=== PATIENT | male | born 1970 | race Caucasian/White ===

== ENCOUNTER 2021-04-07 14:20 | Emergency (ER) | payer OTHER ==
--- OUTSIDE RECORDS SUMMARY | 2021-04-07 14:23 | XMS REPORT | Continuity of Care Document ---
:1970 Author Organization [facility] t Address Formerly [facility] [place] [address] Care Team Providers Name Role Phone Unavailable Unavailable Unavailable Problems This patient has no known problems. Allergies, Adverse Reactions, Alerts This patient has no known allergies or adverse reactions. Medications This patient has no known medications. Procedures This patient has no known procedures. Results This patient has no known results.
[2021-04-07 15:25] LABS: Urine Blood Trace-intact (Negative); Urine Glucose 2+ (Negative); Urine Protein Negative (Negative); Urine Specific Gravity 1.015 (1.005-1.030); Urine pH 6.5 (5.0-7.0)
[2021-04-07] MEDS ORDERED: MORPHINE 4 MG/ML SYR ONE (16:04)
[2021-04-07] MEDS ORDERED: ONDANSETRON 4 MG/2 ML VIAL ONE (16:04)
[2021-04-07 16:11] LABS: ALT/SGPT 107 U/L (12-78); AST/SGOT 49 U/L (15-37); Albumin 3.5 g/dL (3.4-5.0); Alkaline Phosphatase 100 U/L (45-117); BUN Blood Urea Nitrogen 8 mg/dL (7-18); Bicarbonate 29 mmol/L (21-32); Bilirubin Direct < 0.1 mg/dL (0-0.2); Bilirubin Total 0.3 mg/dL (0.2-1.0); Glucose Level 185 mg/dL (74-106); Lipase 232 U/L (73-393); Potassium 3.8 mmol/L (3.5-5.1); Protein, Total 8.1 g/dL (6.4-8.2); Sodium Level 138 mmol/L (136-145)
[2021-04-07 17:15] LABS: Absolute Lymphocytes (CBC) 1.6 K/uL (0.7-4.9); Basophils % 0.7 % (0-1.3); Hematocrit 37.6 % (39.6-49.0); MPV 7.5 fL (7.6-11.3)
[2021-04-07] MEDS ORDERED: NA CHLORIDE 0.9% 1,000 ML ONE (17:21)
--- NOTE | 2021-04-07 17:42 | RAD REPORT ---
EXAM DESCRIPTION: CTAbdomen Pelvis W Contrast - 04/07/2021 5:17 pm CLINICAL HISTORY: Abdominal pain. ABD PAIN COMPARISON: Extremity Nonvascular Complete dated 12/08/2016No comparisons TECHNIQUE: Biphasic CT imaging of the abdomen and pelvis was performed with 100 ml non-ionic IV cont rast. All CT scans are performed using dose optimization technique as appropriate and may include automated exposure control or mA/KV adjustment according to patient size. FINDINGS: The lung bases are clear.The gallbladder appears absent. The liver, spleen, pancreas, adrenal glands and kidneys are within normal limits. No bowel obstruction, free air, free fluid or abscess. Moderate diffuse colonic wall thickening is se en. Findings appear most significant involving the right colon. The appendix is not identified as a d iscrete structure, however, no secondary findings of appendicitis are identified. No evidence of si gnificant lymphadenopathy. No suspicious bony findings. IMPRESSION: Moderately severe colitis pattern is present. No pneumatosis, free air or abscess seen.
--- NOTE | 2021-04-07 17:55 | ER ---
Nurse's Notes [facility] Name: Lopez Estrada Age: 51 yrs Sex: Male : 1970 Arrival Date: 04/07/2021 Time: 14:29 Bed 6 Private MD: Diagnosis: Abdominal and pelvic pain;Colitis Presentation: 04/07 14:34 Chief complaint: Patient states: my stomach started hurting a couple of days ago, upper tw2 right side of my stomach. i have had diarrhea. i am having nausea too. no vomiting. Coronavirus screen: diarrhea, nausea, Client presents with at least one sign or symptom that may indicate coronavirus-19. Standard/surgical mask placed on the client. Provider contacted for isolation considerations. Ebola Screen: Patient denies travel to an Ebola-affected area in the 21 days before illness onset. Initial Sepsis Screen: Does the patient meet any 2 criteria? No. Patient's initial sepsis screen is negative. Does the patient have a suspected source of infection? No. Patient's initial sepsis screen is negative. Risk Assessment: Do you want to hurt yourself or someone else? Patient reports no desire to harm self or others. Onset of symptoms was April 07, 2021. 14:34 Method Of Arrival: Ambulatory tw2 14:34 Acuity: LUCIEN 3 tw2 Triage Assessment: 14:38 General: Appears in no apparent distress. slender, Behavior is calm, cooperative, tw2 appropriate for age. Pain: Complains of pain in right upper quadrant. GI: Reports lower abdominal pain, diarrhea, nausea. Historical: - Allergies: 14:37 No Known Allergies; tw2 - PMHx: 14:37 Diabetes - NIDDM; tw2 - PSHx: 14:37 Cholecystectomy; tw2 - Immunization history:: Adult Immunizations. - Social history:: Smoking status: Patient reports the use of cigarette tobacco products, smokes one pack cigarettes per day. Patient uses street drugs, Methamphetamine (Meth) 3 or 4 days ago. Screenin:25 Abuse screen: Denies threats or abuse. Nutritional screening: No deficits noted. tw2 Tuberculosis screening: No symptoms or risk factors identified. Fall Risk None identified. Assessment: 14:45 General: General: SEE TRIAGE NOTE. bp 16:00 Reassessment: No changes from previously documented assessment. Patient and/or family bp updated on plan of care and expected duration. Pain level reassessed. Patient states symptoms have improved. 17:10 Reassessment: No changes from previously documented assessment. Patient and/or family bp updated on plan of care and expected duration. Pain level reassessed. CT PENDING. LABS REDRAWN. 17:13 Reassessment: PT TO CT. bp 18:07 Reassessment: PT REFUSING PO ABX. STATES HE WILL NOT BE FILLING SCRIPT AT HOME AND THUS bp DOES NOT WANT TO START. PT GIVEN [employer] DISCOUNT CARD TO ENCOURAGE MEDICATION COMPLIANCE. PT D/C HOME AMBULATORY, DX WITH COLITIS. Vital Signs: 14:34 BP 124 / 84; Pulse 72; Resp 18; Temp 97.9; Pulse Ox 99% on R/A; Weight 81.65 kg (R); tw2 Height 5 ft. 10 in. (177.80 cm); Pain 8/10; 16:00 BP 129 / 87; Pulse 62; Resp 17; Pulse Ox 99% ; bp 17:00 BP 117 / 62; Pulse 65; Resp 17; Pulse Ox 97% ; bp 18:00 BP 135 / 81; Pulse 64; Resp 17; Temp 98; Pulse Ox 96% ; bp 14:34 Body Mass Index 25.83 (81.65 kg, 177.80 cm) tw2 ED Course: 14:29 Patient arrived in ED. wm 14:36 Triage completed. tw2 14:38 Arm band placed on. tw2 15:00 Inserted saline lock: 20 gauge in right antecubital area, using aseptic technique. bp Blood collected. 15:23 Rell Ortega, KALEE is Primary Nurse. bp 15:25 Trip Dumont MD is Attending Physician. kdr 15:25 Bed in low position. Call light in reach. Pulse ox on. NIBP on. tw2 17:09 Basic Metabolic Panel Sent. bp 17:17 CT Abd/Pelvis - IV Contrast Only In Process Unspecified. EDMS 18:00 No provider procedures requiring assistance completed. bp 18:05 IV discontinued, intact, bleeding controlled, No redness/swelling at site. Pressure ca1 dressing applied. Administered Medications: 16:00 Drug: morphine 4 mg Route: IVP; Site: right antecubital; bp 17:09 Follow up: Response: Pain is decreased bp 16:00 Drug: Zofran (Ondansetron) 4 mg Route: IVP; Site: right antecubital; bp 17:09 Follow up: Response: No adverse reaction bp 17:09 Drug: NS 0.9% 1000 ml Route: IV; Rate: 1 bolus; Site: right forearm; bp 18:07 Follow up: IV Status: Completed infusion; IV Intake: 1000ml bp 18:07 Not Given (Patient Refused): Flagyl (metroNIDAZOLE) 500 mg PO once bp 18:07 Not Given (Patient Refused): Cipro (ciprofloxacin) 500 mg PO once bp Intake: 18:07 IV: 1000ml; Total: 1000ml. bp Outcome: 17:55 Discharge ordered by . kdr 18:00 Discharged to home ambulatory. bp 18:00 Condition: stable 18:00 Discharge instructions given to patient, Instructed on discharge instructions, follow up and referral plans. medication usage, Demonstrated understanding of instructions, follow-up care, medications, Prescriptions given X 6 18:10 Patient left the ED. bp Signatures: Dispatcher [employer] EDMS Trip Dumont MD MD kdr Flower Martinez RN RN tw2 Rell Ortega RN RN bp Dominga Champagne RN RN ca1 Lizeth Cade Corrections: (The following items were deleted from the chart) 15:29 15:27 General: bp bp
--- NOTE | 2021-04-07 17:55 | EDPHYS ---
Physician Documentation [facility] Name: Lopez Estrada Age: 51 yrs Sex: Male : 1970 Arrival Date: 04/07/2021 Time: 14:29 Bed 6 Private MD: ED Physician Trip Dumont HPI: 04/07 18:02 This 51 yrs old Male presents to ER via Ambulatory with complaints of kdr Abdominal Pain. 18:02 The patient presents with abdominal pain in the epigastric area, in the upper abdomen. kdr Onset: The symptoms/episode began/occurred gradually, 2 week(s) ago. The symptoms do not radiate. Associated signs and symptoms: none. The symptoms are described as achy, burning, crampy, dull, vague. Modifying factors: The symptoms are alleviated by nothing, the symptoms are aggravated by drinking, food, movement, touching the area. Severity of pain: At its worst the pain was mild moderate just prior to arrival, in the emergency department the pain is unchanged. The patient has not experienced similar symptoms in the past. The patient has not recently seen a physician. Historical: - Allergies: 14:37 No Known Allergies; tw2 - PMHx: 14:37 Diabetes - NIDDM; tw2 - PSHx: 14:37 Cholecystectomy; tw2 - Immunization history:: Adult Immunizations. - Social history:: Smoking status: Patient reports the use of cigarette tobacco products, smokes one pack cigarettes per day. Patient uses street drugs, Methamphetamine (Meth) 3 or 4 days ago. ROS: 18:02 Constitutional: Negative for fever, chills, and weight loss, Eyes: Negative for injury, kdr pain, redness, and discharge, ENT: Negative for injury, pain, and discharge, Neck: Negative for injury, pain, and swelling, Cardiovascular: Negative for chest pain, palpitations, and edema, Respiratory: Negative for shortness of breath, cough, wheezing, and pleuritic chest pain, Back: Negative for injury and pain, : Negative for injury, bleeding, discharge, and swelling, MS/Extremity: Negative for injury and deformity, Skin: Negative for injury, rash, and discoloration, Neuro: Negative for headache, weakness, numbness, tingling, and seizure activity. Psych: Negative for depression, anxiety, suicide ideation, homicidal ideation, and hallucinations, Allergy/Immunology: Negative for hives, rash, and allergies, Endocrine: Negative for neck swelling, polydipsia, polyuria, polyphagia, and marked weight changes, Hematologic/Lymphatic: Negative for swollen nodes, abnormal bleeding, and unusual bruising. 18:02 Abdomen/GI: Positive for abdominal pain, nausea, Negative for diarrhea, constipation, abdominal cramps, abdominal distension, anorexia, dysphagia, hematemesis, black/tarry stool, rectal pain, rectal bleeding. Exam: 18:02 Constitutional: This is a well developed, well nourished patient who is awake, alert, kdr and in no acute distress. Head/Face: Normocephalic, atraumatic. Eyes: Pupils equal round and reactive to light, extra-ocular motions intact. Lids and lashes normal. Conjunctiva and sclera are non-icteric and not injected. Cornea within normal limits. Periorbital areas with no swelling, redness, or edema. Neck: Trachea midline, no thyromegaly or masses palpated, and no cervical lymphadenopathy. Supple, full range of motion without nuchal rigidity, or vertebral point tenderness. No Meningismus. Chest/axilla: Normal chest wall appearance and motion. Nontender with no deformity. No lesions are appreciated. Cardiovascular: Regular rate and rhythm with a normal S1 and S2. No gallops, murmurs, or rubs. Normal PMI, no JVD. No pulse deficits. Respiratory: Lungs have equal breath sounds bilaterally, clear to auscultation and percussion. No rales, rhonchi or wheezes noted. No increased work of breathing, no retractions or nasal flaring. Back: No spinal tenderness. No costovertebral tenderness. Full range of motion. Skin: Warm, dry with normal turgor. Normal color with no rashes, no lesions, and no evidence of cellulitis. MS/ Extremity: Pulses equal, no cyanosis. Neurovascular intact. Full, normal range of motion. Neuro: Awake and alert, GCS 15, oriented to person, place, time, and situation. Cranial nerves II-XII grossly intact. Motor strength 5/5 in all extremities. Sensory grossly intact. Cerebellar exam normal. Normal gait. Psych: Awake, alert, with orientation to person, place and time. Behavior, mood, and affect are within normal limits. 18:02 Abdomen/GI: Inspection: abdomen appears normal, Bowel sounds: normal, Palpation: soft, mild abdominal tenderness, in the epigastric area and right upper quadrant. Vital Signs: 14:34 BP 124 / 84; Pulse 72; Resp 18; Temp 97.9; Pulse Ox 99% on R/A; Weight 81.65 kg (R); tw2 Height 5 ft. 10 in. (177.80 cm); Pain 8/10; 16:00 BP 129 / 87; Pulse 62; Resp 17; Pulse Ox 99% ; bp 17:00 BP 117 / 62; Pulse 65; Resp 17; Pulse Ox 97% ; bp 18:00 BP 135 / 81; Pulse 64; Resp 17; Temp 98; Pulse Ox 96% ; bp 14:34 Body Mass Index 25.83 (81.65 kg, 177.80 cm) tw2 MDM: 17:55 Patient medically screened. [facility] 18:02 Data reviewed: vital signs, nurses notes, lab test result(s), radiologic studies. kdr Counseling: I had a detailed discussion with the patient and/or guardian regarding: the historical points, exam findings, and any diagnostic results supporting the discharge/admit diagnosis, lab results, radiology results, the need for outpatient follow up. Special discussion: Based on the patient's Hx, exam, and Dx evaluation, there is no indication for emergent surgery or inpatient Tx. It is understood by the patient/guardian that if the Sx's persist or worsen they need to return immediately for re-evaluation. ED course: The patient refused pain medication and abx. 18:02 Differential diagnosis: appendicitis, bowel obstruction, cholecystitis, Cholelithiasis, kdr diverticulitis. 04/07 15:25 Order name: Urine Dipstick-Ancillary; Complete Time: 15:27 [facility] 04/07 15:28 Order name: Basic Metabolic Panel [facility] 04/07 15:28 Order name: CBC with Diff; Complete Time: 17:25 [facility] 04/07 15:28 Order name: Hepatic Function; Complete Time: 16:26 [facility] 04/07 15:28 Order name: Lipase; Complete Time: 16:26 [facility] 04/07 15:28 Order name: Basic Metabolic Panel; Complete Time: 16:26 [facility] 04/07 15:28 Order name: IV Saline Lock; Complete Time: 16:02 [facility] 04/07 15:28 Order name: Labs collected and sent; Complete Time: 16:02 kdr 04/07 16:50 Order name: CT Abd/Pelvis - IV Contrast Only; Complete Time: 17:53 kdr 04/07 15:55 Order name: Labs - recollect needed: recollect lav top; Complete Time: 17:08 bd Administered Medications: 16:00 Drug: morphine 4 mg Route: IVP; Site: right antecubital; bp 17:09 Follow up: Response: Pain is decreased bp 16:00 Drug: Zofran (Ondansetron) 4 mg Route: IVP; Site: right antecubital; bp 17:09 Follow up: Response: No adverse reaction bp 17:09 Drug: NS 0.9% 1000 ml Route: IV; Rate: 1 bolus; Site: right forearm; bp 18:07 Follow up: IV Status: Completed infusion; IV Intake: 1000ml bp 18:07 Not Given (Patient Refused): Flagyl (metroNIDAZOLE) 500 mg PO once bp 18:07 Not Given (Patient Refused): Cipro (ciprofloxacin) 500 mg PO once bp Disposition: 04/07/21 17:55 Discharged to Home. Impression: Abdominal and pelvic pain, Colitis. - Condition is Stable. - Discharge Instructions: Abdominal Pain, Adult, [id number]. - Prescriptions for Bentyl 20 mg Oral Tablet - take 1 tablet by ORAL route every 6 hours As needed; 20 tablet. Cipro 500 mg Oral Tablet - take 1 tablet by ORAL route every 12 hours for 10 days; 20 tablet. Flagyl 500 mg Oral Tablet - take 1 tablet by ORAL route every 6 hours for 10 days; 40 tablet. Pepcid 20 mg Oral Tablet - take 1 tablet by ORAL route every 12 hours for 5 days; 10 tablet. Zofran 4 mg Oral Tablet - take 1 tablet by ORAL route every 12 hours As needed; 6 tablet. Tramadol 50 mg Oral Tablet - take 1 tablet by ORAL route every 8 hours as needed; 12 tablet. - Medication Reconciliation Form, Thank You Letter, Antibiotic Education, Prescription Opioid Use form. - Follow up: Private Physician; When: 2 - 3 days; Reason: If symptoms return, Further diagnostic work-up, Recheck today's complaints, Continuance of care, Re-evaluation by your physician. - Problem is new. - Symptoms have improved. Signatures: Dispatcher [employer] EDAshley Farah Kevin, MD MD kdr Flower Martinez RN RN tw2 Rell Ortega, RN RN bp Corrections: (The following items were deleted from the chart) 18:10 17:55 04/07/2021 17:55 Discharged to Home. Impression: Abdominal and pelvic pain; bp Colitis. Condition is Stable. Forms are Medication Reconciliation Form, Thank You Letter, Antibiotic Education, Prescription Opioid Use. Follow up: Private Physician; When: 2 - 3 days; Reason: If symptoms return, Further diagnostic work-up, Recheck today's complaints, Continuance of care, Re-evaluation by your physician. Problem is new. Symptoms have improved. kdr
[2021-04-07 19:18] VITALS: BP 135/81; TEMP 98; O2SAT 96
== END 2021-04-07 18:10 | disposition home or self-care (01) ==
LOC: ER 14:20
DX: K52.9 Noninfective gastroenteritis and colitis, unspecified (principal); F17.210 Nicotine dependence, cigarettes, uncomplicated
CPT/HCPCS: 85025; 80048; 36415; 80076; 81003; 83690; 74177; Q9967; J7030; J2405